=== PATIENT | male | born 1950 | race Caucasian/White ===

== ENCOUNTER 2024-02-02 03:04 | Emergency (ER) | payer MEDICARE, OTHER ==
[2024-02-02 03:32] LABS: BASOPHILS PERCENT AUTO 0.9 % (0.0-2.0); EOSINOPHILS ABSOLUTE AUTO 0.28 K/uL (0.00-0.50); EOSINOPHILS PERCENT AUTO 2.4 % (0.0-5.0); HEMATOCRIT 36.5 % (39.0-49.0); LYMPHOCYTES ABSOLUTE AUTO 1.58 K/uL (0.50-3.50); LYMPHOCYTES PERCENT AUTO 13.7 % (10.0-50.0); MEAN CORPUSCULAR HGB CONC 32.9 g/dL (31.7-36.0); MEAN CORPUSCULAR VOLUME 103.4 fL (84.0-98.0); MONOCYTES ABSOLUTE AUTO 1.04 K/uL (0.00-1.00); NEUTROPHILS ABSOLUTE AUTO 8.55 K/uL (1.40-7.00); RED BLOOD CELL COUNT 3.53 M/uL (4.33-5.41); RED CELL DISTRIBUTION WIDTH 15.3 % (11.2-14.1); WHITE BLOOD CELL COUNT,WBC 11.6 K/uL (4.0-10.2)
[2024-02-02 03:42] LABS: C-REACTIVE PROTEIN 1.07 mg/dL (0.05-0.30); CALCIUM 8.4 mg/dL (8.5-10.1); CARBON DIOXIDE,CO2 26.4 mmol/L (21.0-32.0); CREATININE 0.81 mg/dL (0.51-1.17); EST CRCL DRUG DOSING (CG) 77.41 mL/min; POTASSIUM,K 4.8 mmol/L (3.5-5.1)
[2024-02-02 03:43] LABS: ANION GAP 12.4 meq/L (7-15)
[2024-02-02 03:46] LABS: PLATELET COUNT,PLT 1348 K/uL (150-350)
[2024-02-02] MEDS: Clindamycin HCl 150 MG Cap PO ONE (04:11)
[2024-02-02 04:23] VITALS: BP 133/68; PULSE 71
== END 2024-02-02 04:30 ==
LOC: LL.ED 03:04
DX: L03.116 Cellulitis of left lower limb (principal); L03.115 Cellulitis of right lower limb; R79.89 Other specified abnormal findings of blood chemistry; I11.0 Hypertensive heart disease with heart failure; I50.9 Heart failure, unspecified; E78.00 Pure hypercholesterolemia, unspecified; I25.2 Old myocardial infarction; I48.92 Unspecified atrial flutter; Z79.899 Other long term (current) drug therapy; Z79.82 Long term (current) use of aspirin; Z79.01 Long term (current) use of anticoagulants; Z87.891 Personal history of nicotine dependence
CPT/HCPCS: 36415; 80048; 85025; 85379; 86140; 99283; 99284; A9270-GY

== ENCOUNTER 2025-07-17 16:46 | Emergency (ER) | payer MEDICARE, OTHER ==
[2025-07-17] MEDS: Lidocaine 2% with EPINEPHrine 1:100,000 20 ML MDV ONE (17:21)
[2025-07-17] MEDS: Lidocaine 2% with EPINEPHrine 1:100,000 20 ML MDV INJECT ONE (17:21)
== END 2025-07-17 18:09 | disposition home or self-care (01) ==
LOC: LL.ED 16:46
DX: K91.840 Postprocedural hemorrhage of a digestive system organ or structure following a digestive system procedure (principal); I11.0 Hypertensive heart disease with heart failure; I50.9 Heart failure, unspecified; I25.2 Old myocardial infarction; E78.00 Pure hypercholesterolemia, unspecified; Z86.73 Personal history of transient ischemic attack (TIA), and cerebral infarction without residual deficits; Z88.8 Allergy status to other drugs, medicaments and biological substances; Z79.899 Other long term (current) drug therapy; Z79.01 Long term (current) use of anticoagulants; Z79.82 Long term (current) use of aspirin
CPT/HCPCS: 64400; 99283; J2004